=== PATIENT | male | born 1990 | race African-American/Black ===

== ENCOUNTER 2016-11-09 12:44 | Emergency (ER) | payer SELFPAY ==
[2016-11-09 13:03] VITALS: BP 140/94
--- NOTE | 2016-11-09 13:26 | ER Document Report ---
ED Medical Screen (RME) - General Stated Complaint: KNEE PAIN Time seen by provider: 13:25 Mode of Arrival: Ambulatory Information source: Patient Notes: 26-year-old male complaining of a swelling to the prepatellar bursa for one month. He says is getting bigger recently it is not red. I have greeted and performed a rapid initial assessment of this patient. A comprehensive ED assessment, evaluation of the patient, analysis of test results , and completion of the medical decision making process will be contacted by additional ED providers. TRAVEL OUTSIDE OF THE [place] IN LAST 30 DAYS: No - Related Data Allergies/Adverse Reactions: No Known Allergies Allergy (Verified 11/09/16 13:24) Past Medical History - Past Medical History Cardiac Medical History: Reports: Hx Hypertension Denies: Hx Coronary Artery Disease, Hx Heart Attack Pulmonary Medical History: Denies: Hx Asthma, Hx Bronchitis, Hx COPD, Hx Pneumonia, Hx Tuberculosis Neurological Medical History: Denies: Hx Cerebrovascular Accident, Hx Seizures GI Medical History: Reports: Hx Gastritis, Hx Gastroesophageal Reflux Disease Musculoskeltal Medical History: Denies Hx Arthritis, Reports Hx Gout Skin Medical History: Reports Hx Cellulitis, Reports Hx MRSA Psychiatric Medical History: Reports: Hx Bipolar Disorder, Hx Depression Infectious Medical History: Reports: Hx MRSA Past Surgical History: Reports: Hx Abdominal Surgery - hernia repair, Hx Tonsillectomy - adnoids removed, Hx Umbilical Hernia. Denies: Hx Pacemaker - Immunizations Immunizations up to date: Yes Hx Diphtheria, Pertussis, Tetanus Vaccination: Yes Physical Exam - Vital signs Vitals: Temp Pulse Resp BP Pulse Ox 97.8 F 74 14 140/94 H 96 11/09/16 13:02 11/09/16 13:02 11/09/16 13:02 11/09/16 13:02 11/09/16 13:02 Course - Vital Signs Vital signs: Temp Pulse Resp BP Pulse Ox 97.8 F 74 14 140/94 H 96 11/09/16 13:02 11/09/16 13:02 11/09/16 13:02 11/09/16 13:02 11/09/16 13:02
--- NOTE | 2016-11-09 14:58 | ER Document Report ---
ED General - General Chief Complaint: Knee Pain Stated Complaint: KNEE PAIN Mode of Arrival: Ambulatory TRAVEL OUTSIDE OF THE [place] IN LAST 30 DAYS: No - HPI Patient complains to provider of: right knee pain Notes: Patient states right knee injury some months ago has been messing around with his friends wrestling has now swelling of the right knee above the kneecap. Denies fevers chills nausea vomiting difficulty in and bleeding. States no medications at home for the pain - Related Data Allergies/Adverse Reactions: No Known Allergies Allergy (Verified 11/09/16 13:24) Past Medical History - General Information source: Patient - Social History Smoking Status: Never Smoker Chew tobacco use (# tins/day): No Family History: Reviewed & Not Pertinent, DM, Hypertension Patient has suicidal ideation: No Patient has homicidal ideation: No - Past Medical History Cardiac Medical History: Reports: Hx Hypertension Denies: Hx Coronary Artery Disease, Hx Heart Attack Pulmonary Medical History: Denies: Hx Asthma, Hx Bronchitis, Hx COPD, Hx Pneumonia, Hx Tuberculosis Neurological Medical History: Denies: Hx Cerebrovascular Accident, Hx Seizures Renal/ Medical History: Denies: Hx Peritoneal Dialysis GI Medical History: Reports: Hx Gastritis, Hx Gastroesophageal Reflux Disease Musculoskeltal Medical History: Denies Hx Arthritis, Reports Hx Gout Skin Medical History: Reports Hx Cellulitis, Reports Hx MRSA Psychiatric Medical History: Reports: Hx Bipolar Disorder, Hx Depression Infectious Medical History: Reports: Hx MRSA Past Surgical History: Reports: Hx Abdominal Surgery - hernia repair, Hx Tonsillectomy - adnoids removed, Hx Umbilical Hernia. Denies: Hx Pacemaker - Immunizations Immunizations up to date: Yes Hx Diphtheria, Pertussis, Tetanus Vaccination: Yes Review of Systems - Review of Systems Constitutional: No symptoms reported EENT: No symptoms reported Cardiovascular: No symptoms reported Respiratory: No symptoms reported Gastrointestinal: No symptoms reported Genitourinary: No symptoms reported Male Genitourinary: No symptoms reported Musculoskeletal: Muscle pain, Other - Knee swelling Skin: No symptoms reported Hematologic/Lymphatic: No symptoms reported Neurological/Psychological: No symptoms reported -: Yes All other systems reviewed and negative Physical Exam - Vital signs Vitals: Temp Pulse Resp BP Pulse Ox 97.8 F 74 14 140/94 H 96 11/09/16 13:02 11/09/16 13:02 11/09/16 13:02 11/09/16 13:02 11/09/16 13:02 Interpretation: Normal - General General appearance: Appears well, Alert - HEENT Head: Normocephalic, Atraumatic Eyes: Normal Pupils: PERRL - Respiratory Respiratory status: No respiratory distress Chest status: Nontender Breath sounds: Normal Chest palpation: Normal - Cardiovascular Rhythm: Regular Heart sounds: Normal auscultation Murmur: No - Abdominal Inspection: Normal Distension: No distension Bowel sounds: Normal Tenderness: Nontender Organomegaly: No organomegaly - Back Back: Normal, Nontender - Extremities General upper extremity: Normal inspection, Nontender, Normal color, Normal ROM , Normal temperature General lower extremity: Nontender, Normal color, Normal ROM, Normal temperature , Normal weight bearing. No: Normal inspection - Patient with mild swelling of the right knee however the patella freely mobile nontender no erythema consistent with more likely possible bursitis., Vanda's sign - Neurological Neuro grossly intact: Yes Cognition: Normal Orientation: AAOx4 En Coma Scale Eye Opening: Spontaneous [place] Coma Scale Verbal: Oriented [place] Coma Scale Motor: Obeys Commands En Coma Scale Total: 15 Speech: Normal Motor strength normal: LUE, RUE, LLE, RLE Sensory: Normal - Psychological Associated symptoms: Normal affect, Normal mood - Skin Skin Temperature: Warm Skin Moisture: Dry Skin Color: Normal Course - Re-evaluation Re-evalutation: 11/09/16 22:34 Patient with bursitis will treat symptomatically will discharge home. - Vital Signs Vital signs: Temp Pulse Resp BP Pulse Ox 97.8 F 74 14 140/94 H 96 11/09/16 13:02 11/09/16 13:02 11/09/16 13:02 11/09/16 13:02 11/09/16 13:02 Discharge - Discharge Clinical Impression: Knee bursitis Qualifiers: Laterality: right Qualified Code(s): M70.51 - Other bursitis of knee, right knee Condition: Good Disposition: HOME, SELF-CARE Instructions: Bursitis ([facility]) Additional Instructions: Take medications as prescribed return to ER symptoms worsen. Prescriptions: Ibuprofen [Motrin 600 Mg Tablet] 600 mg PO TID #30 tablet Prednisone [Deltasone 20 mg Tablet] 2 tab PO DAILY 5 Days Forms: Return to Work
== END 2016-11-09 15:03 | disposition home or self-care (01) ==
LOC: ER 12:44
DX: M70.51 Other bursitis of knee, right knee (principal); M25.561 Pain in right knee; I10 Essential (primary) hypertension; Z86.14 Personal history of Methicillin resistant Staphylococcus aureus infection; Z87.828 Personal history of other (healed) physical injury and trauma
CPT/HCPCS: 99283

== ENCOUNTER 2016-12-04 13:19 | Emergency (ER) | payer SELFPAY ==
[2016-12-04 13:26] VITALS: BP 142/99
--- NOTE | 2016-12-04 14:03 | ER Document Report ---
ED Medical Screen (RME) - General Stated Complaint: STD EXPOSURE Notes: Patient states he was notified by girlfriend that she has chlamydia. States he does have penile discharge x 2 days. Patient is here for treatment for chlamydia. I have greeted and performed a rapid initial assessment of this patient. A comprehensive ED assessment and evaluation of the patient, analysis of test results and completion of the medical decision making process will be conducted by additional ED providers. TRAVEL OUTSIDE OF THE [place] IN LAST 30 DAYS: No - Related Data Allergies/Adverse Reactions: No Known Allergies Allergy (Verified 12/04/16 14:01) Past Medical History - Past Medical History Cardiac Medical History: Reports: Hx Hypertension Denies: Hx Coronary Artery Disease, Hx Heart Attack Pulmonary Medical History: Denies: Hx Asthma, Hx Bronchitis, Hx COPD, Hx Pneumonia, Hx Tuberculosis Neurological Medical History: Denies: Hx Cerebrovascular Accident, Hx Seizures Renal/ Medical History: Denies: Hx Peritoneal Dialysis GI Medical History: Reports: Hx Gastritis, Hx Gastroesophageal Reflux Disease Musculoskeltal Medical History: Denies Hx Arthritis, Reports Hx Gout Skin Medical History: Reports Hx Cellulitis, Reports Hx MRSA Psychiatric Medical History: Reports: Hx Bipolar Disorder, Hx Depression Infectious Medical History: Reports: Hx MRSA Past Surgical History: Reports: Hx Abdominal Surgery - hernia repair, Hx Tonsillectomy - adnoids removed, Hx Umbilical Hernia. Denies: Hx Pacemaker - Immunizations Immunizations up to date: Yes Hx Diphtheria, Pertussis, Tetanus Vaccination: Yes Physical Exam - Vital signs Vitals: Temp Pulse Resp BP Pulse Ox 98.0 F 85 16 142/99 H 96 12/04/16 13:26 12/04/16 13:26 12/04/16 13:26 12/04/16 13:26 12/04/16 13:26 - Abdominal Bowel sounds: Normal Tenderness: Nontender Course - Vital Signs Vital signs: Temp Pulse Resp BP Pulse Ox 98.0 F 85 16 142/99 H 96 12/04/16 13:26 12/04/16 13:26 12/04/16 13:26 12/04/16 13:26 12/04/16 13:26
[2016-12-04] MEDS ORDERED: LIDOCAINE 1% INJ-PF (10 MG/ML) 30 ML SDV INJ ONE (14:38)
[2016-12-04] MEDS ORDERED: CEFTRIAXONE INJ 250 MG VIAL IM ONE (14:38)
[2016-12-04] MEDS ORDERED: AZITHROMYCIN 1 GM SUSP PACKET PO ONE (14:38)
--- NOTE | 2016-12-04 14:40 | ER Document Report ---
HPI - HPI Patient complains to provider of: chlamydia exposure Onset: Yesterday Pain Level: 4 Context: Patient presents to the emergency department with reports of chlamydiae exposure. He reports he's had some leakage yesterday. Denies pain. Denies fever vomiting diarrhea. Reports his girlfriend told him that she was positive for chlamydia. Associated Symptoms: None Exacerbated by: Denies Relieved by: Denies Similar symptoms previously: No Recently seen / treated by doctor: No - REPRODUCTIVE Reproductive: DENIES: : - DERM Skin Color: Normal Past Medical History - General Information source: Patient - Social History Smoking Status: Current Every Day Smoker Cigarette use (# per day): Yes Chew tobacco use (# tins/day): No Frequency of alcohol use: None Drug Abuse: None Family History: Reviewed & Not Pertinent, DM, Hypertension Patient has suicidal ideation: No Patient has homicidal ideation: No - Past Medical History Cardiac Medical History: Reports: Hx Hypertension Denies: Hx Coronary Artery Disease, Hx Heart Attack Pulmonary Medical History: Denies: Hx Asthma, Hx Bronchitis, Hx COPD, Hx Pneumonia, Hx Tuberculosis Neurological Medical History: Denies: Hx Cerebrovascular Accident, Hx Seizures Renal/ Medical History: Denies: Hx Peritoneal Dialysis GI Medical History: Reports: Hx Gastritis, Hx Gastroesophageal Reflux Disease Musculoskeltal Medical History: Denies Hx Arthritis, Reports Hx Gout Skin Medical History: Reports Hx Cellulitis, Reports Hx MRSA Psychiatric Medical History: Reports: Hx Bipolar Disorder, Hx Depression Infectious Medical History: Reports: Hx MRSA Past Surgical History: Reports: Hx Abdominal Surgery - hernia repair, Hx Tonsillectomy - adnoids removed, Hx Umbilical Hernia. Denies: Hx Pacemaker - Immunizations Immunizations up to date: Yes Hx Diphtheria, Pertussis, Tetanus Vaccination: Yes Vertical Provider Document - CONSTITUTIONAL Agree With Documented VS: Yes Exam Limitations: No Limitations General Appearance: WD/WN, No Apparent Distress - INFECTION CONTROL TRAVEL OUTSIDE OF THE [place] IN LAST 30 DAYS: No - HEENT HEENT: Atraumatic, Normocephalic - NECK Neck: Normal Inspection, Supple. negative: Lymphadenopathy-Left, Lymphadenopathy-Right - RESPIRATORY Respiratory: Breath Sounds Normal, No Respiratory Distress O2 Sat by Pulse Oximetry: 96 - CARDIOVASCULAR Cardiovascular: Regular Rate, Regular Rhythm - GI/ABDOMEN Gastrointestinal: Abdomen Soft, Abdomen Non-Tender - MUSCULOSKELETAL/EXTREMETIES Musculoskeletal/Extremeties: MAEW, FROM - NEURO Level of Consciousness: Awake, Alert, Appropriate Motor/Sensory: No Motor Deficit - DERM Integumentary: Warm, Dry Course - Re-evaluation Re-evalutation: 12/04/16 14:57 Patient instructed on the importance of wearing condoms and follow-up with health department for recheck. - Vital Signs Vital signs: Temp Pulse Resp BP Pulse Ox 98.0 F 85 16 142/99 H 96 12/04/16 13:26 12/04/16 13:26 12/04/16 13:26 12/04/16 13:26 12/04/16 13:26 Discharge - Discharge Clinical Impression: Chlamydia contact, Elevated blood pressure reading Condition: Stable Disposition: HOME, SELF-CARE Instructions: [facility] Department, Chlamydia ([facility]), Gonorrhea ([facility]) , Rocephin ([facility]), Azithromycin ([facility]) Additional Instructions: *You have been evaluated for STD exposure *Follow up with the health department for recheck *Avoid sexual intercourse until follow up *Always use protection, condoms, during sex *Return to ED for worsening condition, changes, needs Monitor your blood pressure. Your blood pressure was elevated today. This may be because you were anxious, in pain or because you need medication. It is important to follow up with your primary care provider for full evaluation. Forms: Elevated Blood Pressure
[2016-12-04 15:19] LABS: APPEARANCE,URINE CLEAR; BILIRUBIN,URINE NEGATIVE (NEGATIVE); GLUCOSE, URINE NEGATIVE (NEGATIVE); KETONES,URINE NEGATIVE (NEGATIVE); LEUKOCYTE ESTERASE,URINE NEGATIVE (NEGATIVE); NITRITE,URINE NEGATIVE (NEGATIVE); PROTEIN,URINE NEGATIVE (NEGATIVE); URINE SPECIFIC GRAVITY 1.024; UROBILINOGEN,URINE NEGATIVE mg/dL (<2.0)
[2016-12-04 16:53] LABS: CHLAM PCR NOT DETECTED (NOT DETECT)
== END 2016-12-04 15:04 | disposition home or self-care (01) ==
LOC: ER 13:19
DX: Z20.2 Contact with and (suspected) exposure to infections with a predominantly sexual mode of transmission (principal); I10 Essential (primary) hypertension; F17.210 Nicotine dependence, cigarettes, uncomplicated; Z86.14 Personal history of Methicillin resistant Staphylococcus aureus infection
CPT/HCPCS: 99283; 96372; 81001; 87491; 87591; J3490; Q0144; J0696

== ENCOUNTER 2018-02-27 19:49 | Emergency (ER) | payer MEDICAID ==
[2018-02-27] MEDS ORDERED: LIDOCAINE 1% INJ-PF (10 MG/ML) 30 ML SDV INJ ONE (21:00)
[2018-02-27] MEDS ORDERED: AZITHROMYCIN 250 MG TABLET PO ONE (21:00)
[2018-02-27] MEDS ORDERED: CEFTRIAXONE INJ 250 MG VIAL IM ONE (21:00)
--- NOTE | 2018-02-27 21:08 | ER Document Report ---
HPI - HPI Pain Level: 3 Notes: Patient is a 27-year-old male with no significant past medical history who presents to the ED complaining of burning with urination, and occasional clear discharge 1 month. Patient states that he was incarcerated over the last 3 months. He has not noticed any rash or swelling in the area. He is still eating and drinking without difficulties. He is having normal BM's. Patient believes that he may have an STD and would like testing. Denies any drug allergies. Denies any smoking or IV drug use. No other concerns or complaints at this time. Denies any headache, fever, neck pain, eye redness, URI, sore throat, chest pain, palpitations, syncope, cough, shortness of breath, wheeze, dyspnea, abdominal pain, nausea/vomiting/diarrhea, urinary retention, hematuria , back pain, loss of control of bowel or bladder, numbness/tingling, saddle anesthesia, muscle paralysis/weakness, or rash. - ROS Systems Reviewed and Negative: Yes All other systems reviewed and negative - GASTROINTESTINAL Gastrointestinal: DENIES: Abdominal Pain - URINARY Urinary: REPORTS: Dysuria - burning - REPRODUCTIVE Reproductive: DENIES: : Past Medical History - Social History Smoking Status: Unknown if Ever Smoked Frequency of alcohol use: None Drug Abuse: None Family History: Reviewed & Not Pertinent, DM, Hypertension Patient has suicidal ideation: No Patient has homicidal ideation: No - Past Medical History Cardiac Medical History: Reports: Hx Hypertension Denies: Hx Coronary Artery Disease, Hx Heart Attack Pulmonary Medical History: Denies: Hx Asthma, Hx Bronchitis, Hx COPD, Hx Pneumonia, Hx Tuberculosis Neurological Medical History: Denies: Hx Cerebrovascular Accident, Hx Seizures Renal/ Medical History: Denies: Hx Peritoneal Dialysis GI Medical History: Reports: Hx Gastritis, Hx Gastroesophageal Reflux Disease Musculoskeltal Medical History: Denies Hx Arthritis, Reports Hx Gout Skin Medical History: Reports Hx Cellulitis, Reports Hx MRSA Psychiatric Medical History: Reports: Hx Bipolar Disorder, Hx Depression Infectious Medical History: Reports: Hx MRSA Past Surgical History: Reports: Hx Abdominal Surgery - hernia repair, Hx Tonsillectomy - adnoids removed, Hx Umbilical Hernia. Denies: Hx Pacemaker - Immunizations Immunizations up to date: Yes Hx Diphtheria, Pertussis, Tetanus Vaccination: Yes Vertical Provider Document - CONSTITUTIONAL Agree With Documented VS: Yes Notes: PHYSICAL EXAMINATION: GENERAL: Well-appearing, well-nourished and in no acute distress. HEAD: Atraumatic, normocephalic. EYES: Pupils equal round and reactive to light, extraocular movements intact, sclera anicteric, conjunctiva are normal. ENT: Nares patent and without discharge. oropharynx clear without exudates. No tonsilar hypertrophy or erythema. Moist mucous membranes. NECK: Normal range of motion, supple without lymphadenopathy LUNGS: Breath sounds clear to auscultation bilaterally and equal. No wheezes rales or rhonchi. HEART: Regular rate and rhythm without murmurs, rubs, gallops. ABDOMEN: Soft, nontender, nondistended abdomen. No guarding, no rebound. No masses appreciated. Normal bowel sounds present. No CVA tenderness bilaterally. : uncircum. no obvious urethral discharge noted. No rash, lesion, ulceration. No erythema/swelling/warmth. No inguinal adenopathy. No tenderness to palp of the penis/scrotum/testicles. Extremities: No cyanosis, clubbing, or edema b/l. Peripheral pulses 2+. Capillary refill less than 3 seconds. PSYCH: Normal mood, normal affect. SKIN: Warm, Dry, normal turgor, no rashes or lesions noted. - INFECTION CONTROL TRAVEL OUTSIDE OF THE [place] IN LAST 30 DAYS: No Course - Re-evaluation Re-evalutation: 02/27/18 21:48 Patient is an afebrile, well-hydrated, 27-year-old male who presents to the ED with dysuria. Vitals are acceptable. PE is otherwise unremarkable. Urinalysis was unremarkable for any acute pathology. Urine cultures pending. Chlamydia gonorrhea tests are also pending. Patient did receive Zithromax and Rocephin today. He has no significant tachycardia, tachypnea, or hypoxia. He is tolerating p.o. without difficulties. He is nontoxic-appearing. No other labs or imaging warranted at this time based on H&P. Low suspicion/risk for acute appendicitis, bowel obstruction, acute cholecystitis, perforated diverticulitis, incarcerated hernia, pancreatitis, perforated ulcer, peritonitis , sepsis, testicular torsion, nec fasc, or other systemic emergent condition at this time. Patient is aware that his condition can change from initial presentation and he needs to monitor symptoms closely and seek medical attention if any acute changes. Conservative measures otherwise for symptoms. Recheck with PCM/Health dpt in 3-5 days. Consider consult with a Urologist. Return to the ED with any worsening/concerning symptoms otherwise as reviewed in discharge. Patient is in agreement. - Vital Signs Vital signs: Temp Pulse Resp BP Pulse Ox 98.9 F 91 18 132/90 H 96 02/27/18 20:18 02/27/18 20:18 02/27/18 20:18 02/27/18 20:18 02/27/18 20:18 Discharge - Discharge Clinical Impression: Dysuria Condition: Stable Disposition: HOME, SELF-CARE Additional Instructions: Push fluids (i.e. water, cranberry juice) Proper hygenic technique Keep the skin clean Safe sexual practices with condoms everytime Tylenol/ibuprofen as needed Check in with the health department this week for further testing* Your chlamydia/Ghon test are pending and you will be notified if positive results; you may call in 1 day for the results as well Return immediately if symptoms worsen F/u with your PCM in 3-5 days for a recheck Consider consult with a Urologist for ongoing/worsening symptoms. Return to the ED with any development of SHI/fever, trouble with vision, eye redness, worsening pain, urethral discharge, urinary retention, blood in the urine, flank pain, abdominal pain, n/v, Chest Pain, shortness of breath, joint pains, trouble breathing, or any other worsening/concerning symptoms as needed otherwise. Forms: Elevated Blood Pressure Referrals: [facility] [Provider Group] - Follow up as needed [facility] [NO LOCAL MD] - Follow up in 3-5 days
[2018-02-27 21:33] LABS: APPEARANCE,URINE CLEAR; BILIRUBIN,URINE NEGATIVE (NEGATIVE); COLOR,URINE YELLOW; GLUCOSE, URINE NEGATIVE (NEGATIVE); KETONES,URINE NEGATIVE (NEGATIVE); LEUKOCYTE ESTERASE,URINE NEGATIVE (NEGATIVE); NITRITE,URINE NEGATIVE (NEGATIVE); PROTEIN,URINE NEGATIVE (NEGATIVE); URINE SPECIFIC GRAVITY 1.024; UROBILINOGEN,URINE NEGATIVE mg/dL (<2.0)
[2018-02-27 22:03] VITALS: BP 127/86
[2018-02-27 22:55] LABS: CHLAM PCR NOT DETECTED (NOT DETECT); GON PCR NOT DETECTED (NOT DETECT)
== END 2018-02-27 22:03 | disposition home or self-care (01) ==
LOC: ER 19:49
DX: R30.0 Dysuria (principal); R36.9 Urethral discharge, unspecified; I10 Essential (primary) hypertension
CPT/HCPCS: 99283; 96372; 87086; 81001; 87491; 87591; Q0144; J3490; J0696